=== PATIENT | male | born 2000 | race Caucasian/White ===

== ENCOUNTER 2022-04-26 18:22 | Observation (INO) ==
[2022-04-26] MEDS ORDERED: Iopamidol - 370 500 ML MLS IVP ONE ×2 (19:54→20:37)
[2022-04-26 20:18] LABS: Hemoglobin 12.8 g/dL (12.9-16.9); Nucleated Red Blood Cells 0.8 /100 WBC (0)
[2022-04-26 20:20] LABS: Hematocrit 40.9 % (37.5-50.1); Mean Corpuscular HGB Conc 31.3 g/dL (31.6-35.5); Mean Corpuscular Hemoglobin 29.1 pg (28.0-33.3); Platelet Count 467 K/mcL (140-400); Red Cell Distribution Width 16.6 % (11.5-14.5)
[2022-04-26 20:27] LABS: White Blood Count 158.2 K/mcL (4.3-11.1)
[2022-04-26] MEDS ORDERED: *HR* FentaNYL (PF) 100 MCG/2 ML VIAL IVP ONE (20:29)
[2022-04-26 20:35] LABS: BUN/Creatinine Ratio 10 (6-26); Blood Urea Nitrogen 12 mg/dL (6-20); Calcium 9.8 mg/dL (8.6-10.3); Carbon Dioxide 27 mEq/L (23-29); Chloride 106 mEq/L (98-107); Glucose 106 mg/dL (70-105); Osmolality,Calculated 290 (280-300); Potassium 3.8 mEq/L (3.5-5.1); Sodium 140 mEq/L (136-145)
[2022-04-26 21:01] LABS: Basophils # 12.7 K/mcL (0.0-0.2); Eosinophils # 15.8 K/mcL (0.0-0.6); Lymphocytes # 12.7 K/mcL (0.6-4.6); Monocytes # 3.2 K/mcL (0.0-1.3); Neutrophils # 107.6 K/mcL (1.6-8.9)
[2022-04-26 21:02] LABS: INR 1.2; Prothrombin Time 13.7 Seconds (9.4-12.1)
[2022-04-26 21:03] LABS: Reactive Lymphocytes Present (Not Present); Smudge Cells Present (Not Present)
[2022-04-26 21:06] LABS: Activated Partial Thrombo Time 30.6 Seconds (26.0-36.0)
[2022-04-26 21:17] LABS: Albumin 4.4 g/dL (3.5-5.7); Albumin/Globulin Ratio 1.8 (1.1-2.2); Bilirubin,Indirect 0.5 mg/dL (0.0-1.0); Bilirubin,Total 0.5 mg/dL (0.3-1.0); Globulin 2.5 g/dL (2.4-3.5); Total Protein 6.9 g/dL (6.4-8.9)
[2022-04-26 21:38] LABS: Mean Corpuscular HGB Conc 31.6 g/dL (31.6-35.5); Nucleated Red Blood Cells 0.8 /100 WBC (0); Red Cell Distribution Width 16.6 % (11.5-14.5)
[2022-04-26 21:40] LABS: Hemoglobin 11.7 g/dL (12.9-16.9); Mean Corpuscular Hemoglobin 29.3 pg (28.0-33.3); Mean Corpuscular Volume 92.7 fL (83.0-100.0); Platelet Count 443 K/mcL (140-400); Red Blood Count 3.99 M/mcL (4.19-5.50)
[2022-04-26 21:47] LABS: White Blood Count 146.6 K/mcL (4.3-11.1)
[2022-04-26] MEDS ORDERED: Gadolinium Contrast Agent (WT Based) IV PRN (22:18)
[2022-04-26] MEDS ORDERED: Hydroxyurea 500 MG CAPSULE PO ONE (22:30)
[2022-04-26 22:43] LABS: Basophils # 8.8 K/mcL (0.0-0.2); Eosinophils # 8.8 K/mcL (0.0-0.6); Lymphocytes # 14.7 K/mcL (0.6-4.6); Monocytes # 5.9 K/mcL (0.0-1.3); Neutrophils # 96.8 K/mcL (1.6-8.9)
[2022-04-26 22:44] LABS: Smudge Cells Present (Not Present)
[2022-04-26] MEDS ORDERED: Ondansetron 4 MG/2 ML VIAL IVP PRN (23:26)
[2022-04-26] MEDS ORDERED: Melatonin 3 MG TABLET PO PRN (23:26)
[2022-04-26] MEDS ORDERED: Naloxone 0.4 MG/ML INJ IVP PRN (23:26)
[2022-04-26] MEDS ORDERED: *HR* HYDROmorphone (PF) 1 MG/ML SYRINGE IVP ONE (23:35)
[2022-04-26] MEDS ORDERED: *HR* HYDROcodone/Acet 5/325 mg TABLET PO PRN (23:36)
[2022-04-26] MEDS ORDERED: Ketorolac 30 MG/ML VIAL IVP ONE (23:54)
[2022-04-27] MEDS ORDERED: Ketorolac 30 MG/ML VIAL IM PRN (00:14)
[2022-04-27] MEDS ORDERED: Ketorolac 30 MG/ML VIAL IVP PRN (01:53)
[2022-04-27 03:09] LABS: Hematocrit 36.1 % (37.5-50.1); Hemoglobin 11.5 g/dL (12.9-16.9); Mean Corpuscular HGB Conc 31.9 g/dL (31.6-35.5); Mean Corpuscular Hemoglobin 29.3 pg (28.0-33.3); Mean Corpuscular Volume 92.1 fL (83.0-100.0); Mean Platelet Volume 9.2 fL (9.4-12.4); Nucleated Red Blood Cells 0.8 /100 WBC (0); Platelet Count 423 K/mcL (140-400); Red Blood Count 3.92 M/mcL (4.19-5.50); Red Cell Distribution Width 16.7 % (11.5-14.5)
[2022-04-27 03:11] LABS: White Blood Count 157.7 K/mcL (4.3-11.1)
[2022-04-27 03:18] LABS: INR 1.3; Prothrombin Time 14.9 Seconds (9.4-12.1)
[2022-04-27 03:27] LABS: Alanine Aminotransferase 20 Units/L (7-52); Albumin 4.2 g/dL (3.5-5.7); Albumin/Globulin Ratio 1.8 (1.1-2.2); Alkaline Phosphatase 71 Units/L (34-104); Aspartate Amino Transferase 18 Units/L (13-39); BUN/Creatinine Ratio 9 (6-26); Bilirubin,Total 0.5 mg/dL (0.3-1.0); Blood Urea Nitrogen 10 mg/dL (6-20); Calcium 8.9 mg/dL (8.6-10.3); Carbon Dioxide 24 mEq/L (23-29); Chloride 103 mEq/L (98-107); Globulin 2.4 g/dL (2.4-3.5); Glucose 146 mg/dL (70-105); Magnesium 1.7 mg/dL (1.6-2.6); Osmolality,Calculated 284 (280-300); Phosphorous 4.9 mg/dL (2.7-4.5); Potassium 3.4 mEq/L (3.5-5.1); Sodium 136 mEq/L (136-145); Total Protein 6.6 g/dL (6.4-8.9)
[2022-04-27 03:37] LABS: Basophils # 4.7 K/mcL (0.0-0.2); Hypochromasia Present (Not Present); Lymphocytes # 18.9 K/mcL (0.6-4.6); Monocytes # 3.2 K/mcL (0.0-1.3); Neutrophils # 116.7 K/mcL (1.6-8.9); Platelet Estimate Normal (Normal); Polychromasia 1+ (Not Present)
[2022-04-27 03:38] LABS: Tear Drop Cells 1+ (Not Present)
[2022-04-27] MEDS: *HR* Enoxaparin 40 MG/0.4 ML SYRINGE SQ SCH (05:32)
[2022-04-27] MEDS: Acetaminophen 325 MG TABLET PO PRN ×2 (08:40→17:48)
[2022-04-27] MEDS: allopurinoL 300 MG TABLET PO SCH (12:03)
[2022-04-27] MEDS: Hydroxyurea 500 MG CAPSULE PO SCH ×2 (12:03→19:39)
[2022-04-27 14:04] LABS: Immature Reticulocyte % 28.6 % (11.0-38.0); Nucleated Red Blood Cells 0.6 /100 WBC (0); Retculocyte # 0.13 M/mcL (0.05-0.10); Reticulocyte % 3.1 % (1.6-2.8)
[2022-04-27 14:06] LABS: Hematocrit 38.7 % (37.5-50.1); Hemoglobin 12.5 g/dL (12.9-16.9); Mean Corpuscular HGB Conc 32.3 g/dL (31.6-35.5); Mean Corpuscular Hemoglobin 29.6 pg (28.0-33.3); Mean Corpuscular Volume 91.5 fL (83.0-100.0); Mean Platelet Volume 9.1 fL (9.4-12.4); Platelet Count 449 K/mcL (140-400); Red Blood Count 4.23 M/mcL (4.19-5.50); Red Cell Distribution Width 16.8 % (11.5-14.5)
[2022-04-27 14:18] LABS: INR 1.3; Prothrombin Time 14.3 Seconds (9.4-12.1)
[2022-04-27 14:20] LABS: Activated Partial Thrombo Time 30.8 Seconds (26.0-36.0)
[2022-04-27 14:24] LABS: % Iron Saturation 25 % (20-55); Alanine Aminotransferase 22 Units/L (7-52); Albumin 4.9 g/dL (3.5-5.7); Alkaline Phosphatase 86 Units/L (34-104); Aspartate Amino Transferase 20 Units/L (13-39); BUN/Creatinine Ratio 8 (6-26); Bilirubin,Total 0.4 mg/dL (0.3-1.0); Blood Urea Nitrogen 8 mg/dL (6-20); Calcium 9.7 mg/dL (8.6-10.3); Carbon Dioxide 24 mEq/L (23-29); Chloride 103 mEq/L (98-107); Globulin 2.4 g/dL (2.4-3.5); Glucose 129 mg/dL (70-105); Iron 92 mcg/dL (65-175); Osmolality,Calculated 284 (280-300); Potassium 3.2 mEq/L (3.5-5.1); Sodium 137 mEq/L (136-145); Total Protein 7.3 g/dL (6.4-8.9); Transferrin 260 mg/dL (203-362); White Blood Count 169.7 K/mcL (4.3-11.1)
[2022-04-27 14:41] LABS: Ferritin 273 ng/mL (20-250)
[2022-04-27 14:52] LABS: Basophils # 6.8 K/mcL (0.0-0.2); Eosinophils # 3.4 K/mcL (0.0-0.6); Lymphocytes # 3.4 K/mcL (0.6-4.6); Neutrophils # 135.8 K/mcL (1.6-8.9); Vitamin B12 > 1500 pg/mL (250-1100)
[2022-04-27 15:28] LABS: Hepatitis C Virus Antibody Nonreactive (Nonreactive)
[2022-04-27 15:29] LABS: Hepatitis B Core IgM Nonreactive (Nonreactive)
[2022-04-27 15:30] LABS: Hepatitis A Antibody IgM Nonreactive (Nonreactive)
[2022-04-27 16:10] LABS: Hepatitis B Surface Antigen Nonreactive (Nonreactive)
[2022-04-27 18:33] LABS: HIV-1&2 Antibody & p24 Ag Nonreactive (Nonreactive)
[2022-04-27] MEDS: *HR* HYDROcodone/Acet 5/325 mg TABLET PO PRN (19:39)
[2022-04-27] MEDS: *HR* OxyCODONE Immed Rel 5 MG TABLET PO PRN (22:31)
[2022-04-28] MEDS: *HR* HYDROcodone/Acet 5/325 mg TABLET PO PRN (03:57)
[2022-04-28] MEDS: *HR* Enoxaparin 40 MG/0.4 ML SYRINGE SQ SCH (05:39)
[2022-04-28] MEDS: *HR* OxyCODONE Immed Rel 5 MG TABLET PO PRN (05:40)
[2022-04-28 06:01] VITALS: PULSE 88
[2022-04-28] MEDS: Hydroxyurea 500 MG CAPSULE PO SCH (09:50)
[2022-04-28] MEDS: allopurinoL 300 MG TABLET PO SCH (09:51)
[2022-04-28 10:25] LABS: Nucleated Red Blood Cells 0.5 /100 WBC (0); Red Cell Distribution Width 16.6 % (11.5-14.5)
[2022-04-28 10:27] LABS: Basophils % 6.6 %; Eosinophils # 3.8 K/mcL (0.0-0.6); Eosinophils % 2.5 %; Hematocrit 38.5 % (37.5-50.1); Hemoglobin 12.3 g/dL (12.9-16.9); Immature Granulocytes % 22.8 % (0-4); Lymphocytes % 4.6 %; Mean Corpuscular HGB Conc 31.9 g/dL (31.6-35.5); Mean Corpuscular Volume 90.8 fL (83.0-100.0); Monocytes # 4.6 K/mcL (0.0-1.3); Platelet Count 430 K/mcL (140-400); Red Blood Count 4.24 M/mcL (4.19-5.50); Segmented Neutrophils % 60.5 %
[2022-04-28 10:41] LABS: Basophils # 10.1 K/mcL (0.0-0.2); Neutrophils # 92.4 K/mcL (1.6-8.9)
[2022-04-28 10:42] LABS: White Blood Count 152.8 K/mcL (4.3-11.1)
[2022-04-28 10:43] LABS: Alanine Aminotransferase 22 Units/L (7-52); Albumin 4.8 g/dL (3.5-5.7); Alkaline Phosphatase 87 Units/L (34-104); Aspartate Amino Transferase 21 Units/L (13-39); BUN/Creatinine Ratio 8 (6-26); Bilirubin,Total 0.6 mg/dL (0.3-1.0); Blood Urea Nitrogen 9 mg/dL (6-20); Calcium 9.4 mg/dL (8.6-10.3); Carbon Dioxide 26 mEq/L (23-29); Chloride 103 mEq/L (98-107); Globulin 2.4 g/dL (2.4-3.5); Glucose 112 mg/dL (70-105); Osmolality,Calculated 283 (280-300); Potassium 3.6 mEq/L (3.5-5.1); Sodium 137 mEq/L (136-145); Total Protein 7.2 g/dL (6.4-8.9); Uric Acid 8.6 mg/dL (2.3-7.6)
[2022-04-28 11:10] LABS: Anisocytosis 1+ (Not Present)
[2022-04-28 11:11] LABS: Large Platelets Present (Not Present); Platelet Estimate Increased (Normal); Poikilocytosis 1+ (Not Present)
[2022-04-28 12:15] VITALS: BP 129/66; TEMP 98.1; O2SAT 95
[2022-04-28] MEDS ORDERED: Ibuprofen 400 MG TABLET PO PRN (14:29)
[2022-04-28] MEDS ORDERED: *HR* HYDROcodone/Acet 5/325 mg TABLET PO PRN (14:30)
[2022-04-28 17:30] LABS: Thyroid Stimulating Hormone 5.981 mcIU/mL (0.340-5.600)
== END 2022-04-28 16:41 | disposition short-term general hospital (02) ==
LOC: EMEROOARM 18:22 → 2ANU 18:22 → SUATTDRO 23:27 → 2ANU 04-27 00:23
PROVIDERS: ADMIT Internal Medicine; ATTEND Internal Medicine